=== PATIENT | male | born 1965 | race Hispanic/Latino ===

== ENCOUNTER → 2019-07-07 | Outpatient (CLI) | payer OTHER ==
[~2019-07-07] MED LIST: LISI-613 PO
== END | disposition home or self-care (01) ==
LOC: SHCH 13:39
PROVIDERS: ATTEND Internal Medicine Cardiovascular Disease
DX: I11.9 Hypertensive heart disease without heart failure (principal); R06.00 Dyspnea, unspecified; E66.9 Obesity, unspecified
CPT/HCPCS: 93306

== ENCOUNTER → 2019-09-22 | Outpatient (CLI) | payer OTHER ==
[~2019-09-22] MED LIST changes: +ALBUTEROL SULFATE 0.083% 2.5 MG/3 ML INH IH ONE
== END | disposition home or self-care (01) ==
LOC: RESP 08:48
PROVIDERS: ATTEND Internal Medicine Cardiovascular Disease
DX: R06.00 Dyspnea, unspecified (principal)
CPT/HCPCS: 94060; 94727; 94729

== ENCOUNTER → 2020-03-30 | Outpatient (CLI) | payer OTHER ==
[~2020-03-30] MED LIST changes: -ALBUTEROL SULFATE 0.083% 2.5 MG/3 ML INH IH ONE; +CEFAZOLIN SODIUM 1 GM VIAL IVP SCH
--- NOTE | 2020-03-31 13:45 | NUR ---
report called dr villavicencio office and reported pt covid test positive. md office will notify patient and so will infection control
== END ==
LOC: DAH 10:00 → EDSTATUS 10:00
PROVIDERS: ATTEND Urology
DX: N47.1 Phimosis (principal); N48.0 Leukoplakia of penis; I10 Essential (primary) hypertension; E11.9 Type 2 diabetes mellitus without complications; U07.1 COVID-19; Z79.01 Long term (current) use of anticoagulants
CPT/HCPCS: 36415; 71045; 80048; 85025; 85610; 85730; 93005; A6260; C9803; U0003

== ENCOUNTER 2020-06-08 07:08 | Day surgery (SDC) | payer OTHER ==
[2020-06-02 12:40] LABS: BASOPHILS % (AUTO) 0.4 % (0.0-5.0); EOSINOPHILS % (AUTO) 1.8 % (0.0-8.0); HEMATOCRIT 43.2 % (42-54); LYMPHOCYTES % (AUTO) 29.6 % (21.0-51.0); MEAN CORPUSCULAR HEMOGLOBIN 29.8 pg (27.0-33.0); MEAN CORPUSCULAR HGB CONC 32.9 g/dL (32.0-36.0); MEAN CORPUSCULAR VOLUME 90.8 fL (79-99); MONOCYTES % (AUTO) 5.5 % (3.0-13.0); NEUTROPHILS % (AUTO) 62.3 % (40.0-77.0); PLATELET COUNT (AUTO) 249 K/uL (130-400); RED BLOOD CELL COUNT(AUTO) 4.76 MIL/uL (4.50-6.20); RED CELL DISTRIBUTION WIDTH 12.9 % (11.0-15.5); WHITE BLOOD COUNT (AUTO) 9.5 K/uL (4.8-10.8)
[2020-06-02 12:45] LABS: POTASSIUM 3.9 mmol/L (3.5-5.1)
[2020-06-02 12:48] LABS: INR 0.95 (0.85-1.15); PARTIAL THROMBOPLASTIN TIME 27.5 SEC (26.3-35.5); PROTHROMBIN TIME 10.3 SEC (9.6-11.6)
[2020-06-07 11:22] VITALS: BP 134/81
[2020-06-08] VITALS (17 sets, daily range): BP systolic 111–141; BP diastolic 51–75
[~2020-06-08] VITALS: Ht 172.7 cm; Wt 127.9 kg
[~2020-06-08 07:08] MED LIST changes: +ACET-2743 PO; +LINA5TAB PO; -LISI-613 PO; +LISI40TA4 PO; +OMEP-420 PO
[2020-06-08] MEDS ORDERED: LACTATED RINGERS 1000ML 0 ML IV ONE (07:25)
[2020-06-08] MEDS ORDERED: SODIUM CHLORIDE 0.9% 1000ML 1,000 ML IV ONE (07:30)
--- NOTE | 2020-06-08 07:30 | NUR ---
PREOP PT ARRIVED AMBULATORY IN NO DISTRESS. PT HAS PHIMOSIS BUT FREE FROM S/S OF INFECTION. PT ORIENTED TO ROOM AND CALL LIGHT. WILL CONTINUE TO MONITOR PT
[2020-06-08] MEDS ORDERED: BACITRACIN 28.4 GM OINT TP ONE (08:00)
[2020-06-08] MEDS ORDERED: BUPIVACAINE/PF 0.25% 30ML VIAL IJ ONE (08:01)
[2020-06-08] MEDS ORDERED: LIDOCAINE PF 2% 5ML ABBOJECT ONE (08:19)
[2020-06-08] MEDS ORDERED: SUCCINYLCHOLINE 200MG/10ML SYR ONE (08:19)
[2020-06-08] MEDS ORDERED: MIDAZOLAM HCL 1 MG/ML 2ML VIAL ONE (08:19)
[2020-06-08] MEDS ORDERED: PROPOFOL 10 MG/ML 20ML VIAL IV ONE (08:20)
[2020-06-08] MEDS ORDERED: ONDANSETRON HCL 4 MG/2 ML VIAL ONE (09:05)
[2020-06-08] MEDS ORDERED: EPHEDRINE SULFATE 50 MG/ML AMPULE ONE (09:12)
[2020-06-08] MEDS ORDERED: PHENYLEPHRINE HCL 10 MG/ML 1ML VIAL IV ONE (09:13)
[2020-06-08] MEDS ORDERED: ROCURONIUM 10MG/1ML SYR 10 MG/ML ML ONE (09:17)
[2020-06-08] MEDS ORDERED: GLYCOPYRROLATE 1 MG/5 ML SYRINGE ONE (09:19)
[2020-06-08] MEDS ORDERED: NEOSTIGMINE 5MG/5ML SYR IV ONE (09:19)
--- NOTE | 2020-06-08 11:05 | NUR ---
PATIENT ARRIVED TO DAY PATIENT VIA STRETCHER BY YARA ALVARADO. PATIENT [id number], RESPIRATIONS UNLABORED, VITAL SIGN STABLE. DENIES ANY PAIN AT THIS TIME. DRESSING TO PENIS IS DRY/INTACT. NO BLEEDING NOTED.
--- NOTE | 2020-06-08 11:35 | NUR ---
PATIENT DISCHARGED FROM FACILITY VIA WHEELCHAIR BY YARA CALDERON. PATIENT ASSISTED INTO PRIVATE VEHICLE DRIVEN BY FAMILY.
== END 2020-06-08 11:35 | disposition home or self-care (01) ==
LOC: DAH 07:08
PROVIDERS: ATTEND Urology
DX: N47.1 Phimosis (principal); Z20.828 Contact with and (suspected) exposure to other viral communicable diseases; N48.0 Leukoplakia of penis; G47.30 Sleep apnea, unspecified; I10 Essential (primary) hypertension; K21.9 Gastro-esophageal reflux disease without esophagitis; E11.9 Type 2 diabetes mellitus without complications; E66.9 Obesity, unspecified; Z79.01 Long term (current) use of anticoagulants; Z79.899 Other long term (current) drug therapy
CPT/HCPCS: 36415; 54161; 71045; 80048; 82948 ×2; 85025; 85610; 85730; 88304; 93005; A4215; A4216; A4221; A4222; A4223 ×3; A4606 ×2; A4663; C9803; J0330; J0690; J2001; J2250; J2370; J2405; J2704; J2710; J3490 ×3; J7030; U0003; J7120

== ENCOUNTER 2020-06-09 13:31 | Emergency (ER) | payer OTHER ==
[~2020-06-09 13:31] MED LIST changes: -CEFAZOLIN SODIUM 1 GM VIAL IVP SCH
[2020-06-09 14:29] LABS: BASOPHILS % (AUTO) 0.3 % (0.0-5.0); HEMATOCRIT 42.4 % (42-54); LYMPHOCYTES % (AUTO) 37.3 % (21.0-51.0); MEAN CORPUSCULAR HGB CONC 32.8 g/dL (32.0-36.0); MEAN CORPUSCULAR VOLUME 91.4 fL (79-99); MONOCYTES % (AUTO) 6.7 % (3.0-13.0); NEUTROPHILS % (AUTO) 53.4 % (40.0-77.0); PLATELET COUNT (AUTO) 222 K/uL (130-400); RED BLOOD CELL COUNT(AUTO) 4.64 MIL/uL (4.50-6.20); RED CELL DISTRIBUTION WIDTH 13.3 % (11.0-15.5); WHITE BLOOD COUNT (AUTO) 9.7 K/uL (4.8-10.8)
[2020-06-09 14:55] LABS: INR 0.93 (0.85-1.15); PROTHROMBIN TIME 10.1 SEC (9.6-11.6)
[2020-06-09 15:16] LABS: POTASSIUM 4.1 mmol/L (3.5-5.1)
[2020-06-09 15:21] LABS: ALBUMIN 3.3 g/dL (3.5-5.0); BILIRUBIN,TOTAL 0.2 mg/dL (0.2-1.0)
[2020-06-09 15:27] LABS: APPEARANCE,URINE Clear (CLEAR); BILIRUBIN,URINE Negative (NEGATIVE); COLOR,URINE Yellow (YELLOW); GLUCOSE, URINE (UA) Negative (NEGATIVE); KETONES,URINE Negative (NEGATIVE); LEUKOCYTE ESTERASE ,URINE Negative (NEGATIVE); NITRATE,URINE Negative (NEGATIVE); OCCULT BLOOD,URINE Nonhemolyzed Trace (NEGATIVE); PROTEIN,URINE Negative (NEGATIVE)
[2020-06-09 15:55] LABS: BACTERIA,URINE Rare /HPF (None Seen); SQUAMOUS EPITHELIAL CELL,UR 0-2 /HPF (0-2); WBC,URINE 0-1 /HPF (0-1)
[2020-06-09] MEDS ORDERED: CYCLOBENZAPRINE HCL 10 MG TABLET ONE (18:44)
[2020-06-09] MEDS ORDERED: KETOROLAC TROMETHAMINE 30MG/ML ONE (18:44)
== END 2020-06-09 19:51 | disposition home or self-care (01) ==
LOC: EDH 13:31
DX: M79.10 Myalgia, unspecified site (principal); E11.9 Type 2 diabetes mellitus without complications; I10 Essential (primary) hypertension; K21.9 Gastro-esophageal reflux disease without esophagitis
CPT/HCPCS: 36415; 70450; 71045; 72125; 80053; 81001; 83605; 84145; 84484; 85025; 85610; 85730; 86900; 86901; 87040 ×2; 87088; 93005; 96361; 96374; 99285; J1885